=== PATIENT | male | born 1995 | race Asian ===

== ENCOUNTER 2019-02-04 09:57 | Emergency (ER) | payer BC ==
[~2019-02-04] VITALS: Ht 182.9 cm; Wt 86.0 kg
[2019-02-04] MEDS ORDERED: KETOROLAC 60MG/2ML VIAL IM ONE (11:45)
[2019-02-04 11:47] VITALS: BP 128/65
== END 2019-02-04 12:03 | disposition home or self-care (01) ==
LOC: ER 10:28
DX: S70.12XA Contusion of left thigh, initial encounter (principal); S60.222A Contusion of left hand, initial encounter; V03.10XA Pedestrian on foot injured in collision with car, pick-up truck or van in traffic accident, initial encounter; Y93.01 Activity, walking, marching and hiking; Y92.9 Unspecified place or not applicable
CPT/HCPCS: 96372; 99283; J1885